=== PATIENT | female | born 1990 | race Caucasian/White ===

== ENCOUNTER 2020-12-13 13:42 | Emergency (ER) | payer OTHER ==
[~2020-12-13] VITALS: Ht 152.4 cm; Wt 83.9 kg
[~2020-12-13 13:42] MED LIST: IMITREX100 MG PO; LIORESAL 10 MG10 MG PO; MAGOX 400400 MG PO; PROTONIX40 M1; TOPAMAX 100 MG100 MG PO; ZOFRAN ODT4 MG
[2020-12-13 15:21] VITALS: BP 138/72
--- NOTE | 2020-12-13 15:54 | EKG ---
[place] [address] ELECTROCARDIOGRAM REPORT Name: SADA CALLAWAY Room: [facility]#: [id number] Admission: 12/13/20 Attend Phys: Discharge: 12/13/20 Date of : 86 Date of Service: 12/13/20 1347 Report #: [id number] THIS REPORT FOR: //name// [facility] ED Test Date: 2020-12-13 Test Time: 13:47:24 Pat Name: SADA CALLAWAY Department: Room: Gender: F Payment Poster: BRANDON : 1990 Requested By: Davian Mast Order Number: [id number] MD: Moses Cruz Measurements Intervals [place] Rate: 112 P: 46 CT: 125 QRS: 11 QRSD: 85 T: 32 QT: 314 QTc: 429 Interpretive Statements Sinus tachycardia Low voltage, precordial leads Borderline T abnormalities, anterior leads Compared to ECG 07/31/2017 22:07:39 T-wave abnormality now present Sinus arrhythmia no longer present Electronically Signed On 12-13-2020 15:54:28 CDT by Moses Cruz [email or web address] <ELECTRONICALLY SIGNED> By: Moses Cruz MD, [facility] 12/13/20 1554 1347 1347 Moses Cruz MD, [facility] /EPI
== END 2020-12-13 15:22 | disposition home or self-care (01) ==
LOC: M.ERS 13:42
DX: R07.89 Other chest pain (principal); R06.02 Shortness of breath; G43.909 Migraine, unspecified, not intractable, without status migrainosus; R00.2 Palpitations; K21.9 Gastro-esophageal reflux disease without esophagitis; F17.210 Nicotine dependence, cigarettes, uncomplicated; Z88.1 Allergy status to other antibiotic agents; Z91.040 Latex allergy status

== ENCOUNTER 2021-04-03 16:50 | Emergency (ER) | payer OTHER ==
[~2021-04-03] VITALS: Ht 172.7 cm; Wt 70.8 kg
[2021-04-03] MEDS ORDERED: APAP W/CODEINE1 TA2 PO (18:04)
[2021-04-03 18:16] VITALS: BP 132/54
== END 2021-04-03 18:17 | disposition home or self-care (01) ==
LOC: M.ERS 16:50
DX: J06.9 Acute upper respiratory infection, unspecified (principal); Z20.822 Contact with and (suspected) exposure to COVID-19; F17.210 Nicotine dependence, cigarettes, uncomplicated; G43.909 Migraine, unspecified, not intractable, without status migrainosus; K21.9 Gastro-esophageal reflux disease without esophagitis